=== PATIENT | male | born 1965 | race Caucasian/White ===

== ENCOUNTER 2019-01-08 11:21 | Emergency (ER) | payer SELFPAY ==
--- NOTE | 2019-01-08 12:58 | ER Document Report ---
HPI - HPI Patient complains to provider of: left great toe pain Time Seen by Provider: 01/08/19 12:49 Onset: Other Onset/Duration: Persistent Quality of pain: Achy Severity: Moderate Pain Level: 3 Context: [facility] with complaints of left foot pain, specifically left great toe pain for the past 2 weeks. He reports redness for the last few days. Denies other symptoms such as fever vomiting diarrhea. Denies trauma to the toe. Reports he has never had this before but he thinks it might be gout. Associated Symptoms: None Exacerbated by: Walking Relieved by: Denies Similar symptoms previously: No Recently seen / treated by doctor: No Past Medical History - General Information source: Patient - Social History Smoking Status: Current Every Day Smoker Cigarette use (# per day): Yes Frequency of alcohol use: Occasional Drug Abuse: None Family History: None Patient has suicidal ideation: No Patient has homicidal ideation: No - Medical History Medical History: Negative Surgical Hx: Negative Vertical Provider Document - CONSTITUTIONAL Agree With Documented VS: Yes Exam Limitations: No Limitations General Appearance: WD/WN, No Apparent Distress - INFECTION CONTROL TRAVEL OUTSIDE OF THE [place] IN LAST 30 DAYS: No - HEENT HEENT: Atraumatic, Pharyngeal Erythema - NECK Neck: Supple - RESPIRATORY Respiratory: No Respiratory Distress - CARDIOVASCULAR Cardiovascular: Regular Rate - MUSCULOSKELETAL/EXTREMETIES Musculoskeletal/Extremeties: MAEW, FROM, Tender - Great toe tender erythema and ttp noted to dorsal interphalangeal joint no warmth, no nail damage, no paronychia - NEURO Level of Consciousness: Awake, Alert, Appropriate Motor/Sensory: No Motor Deficit - DERM Integumentary: Warm, Dry Course - Re-evaluation Re-evalutation: 01/08/19 14:07 Foot x-ray negative uric acid 3.6..based on appearance patient has gout will treat with NSAIDs and steroids. Patient was instructed on the importance of follow-up with primary care provider for a full exam. He verbalized understanding to all instructions. Male sex (2 points) ?Previous patient-reported arthritis flare (2 points) ?Onset within one day (0.5 points) ?Joint redness (1 point) ?First metatarsal phalangeal joint involvement (2.5 points) ?Hypertension or at least one cardiovascular disease (1.5 points) ?Serum urate level greater than 5.88 mg/dL (3.5 points) Based upon the total score, patients can be identified as having low (?4 points), intermediate (>4 to <8 points), or high (?8 points) probability of gout. In addition, the authors of the rule have developed a calculator for clinical use that provides a more precise absolute calculated risk of gout for the individual patient [84] and is based upon statistically refined characterization of the variables Dictation of this chart was performed using voice recognition software; therefore, there may be some unintended grammatical errors. - Vital Signs Vital signs: Temp Pulse Resp BP Pulse Ox 97.9 F 70 16 142/73 H 100 01/08/19 11:43 01/08/19 11:43 01/08/19 11:43 01/08/19 11:43 01/08/19 11:43 - Diagnostic Test Radiology reviewed: Image reviewed, Reports reviewed - EXAM DESCRIPTION: FOOT LEFT COMPLETE COMPLETED DATE/TIME: 01/08/2019 1:15 pm REASON FOR STUDY: pain, swelling COMPARISON: None. NUMBER OF VIEWS: Three views. TECHNIQUE: AP, lateral and oblique without weight bearing radiographic images acquired of the left foot. LIMITATIONS: None. FINDINGS: MINERALIZATION: Normal. BONES: No acute fracture or dislocation. No worrisome bone lesions. No significant ost eophytes. JOINTS: No erosions. No federico-articular osteopenia. No chondrocalcinosis. SOFT TISSUES: No swelling. No calcifications. OTHER: No other significant finding. IMPRESSION: NEGATIVE STUDY OF THE LEFT FOOT. NO EXPLANATION FOR PAIN. TECHNICAL DOCUMENTATION: JOB ID: [id number] [employer]- All Rights Reserved Reading location - IP/workstation name: [email or web address] BY [facility] Discharge - Discharge Clinical Impression: Pain of left great toe Gout Qualifiers: Gout site: toe Gout etiology: unspecified cause Chronicity: acute Laterality: left Qualified Code(s): M10.9 - Gout, unspecified Condition: Stable Disposition: HOME, SELF-CARE Instructions: Anti-Inflammatory Medication ([facility]), Family Physicians / Practices, Gout ([facility]), Gout Diet ([facility]), Steroid Medication Additional Instructions: *You have been evaluated for right great toe pain, suspect gout *Rest *Follow up with a primary care provider within one week *Take medication as prescribed *Return to ED for worsening condition, changes, needs Monitor your blood pressure. Your blood pressure was elevated today. This may be because you were anxious, in pain or because you need medication. It is important to follow up with your primary care provider for full evaluation. Prescriptions: Naproxen 500 mg PO BID #30 tablet Prednisone [Deltasone 10 mg Tablet] 10 mg PO ASDIR PRN #21 tablet PRN Reason: Forms: Elevated Blood Pressure
--- NOTE | 2019-01-08 13:56 | RADIOLOGY REPORT (SQ) ---
EXAM DESCRIPTION: FOOT LEFT COMPLETE COMPLETED DATE/TIME: 01/08/2019 1:15 pm REASON FOR STUDY: pain, swelling COMPARISON: None. NUMBER OF VIEWS: Three views. TECHNIQUE: AP, lateral and oblique without weight bearing radiographic images acquired of the left f oot. LIMITATIONS: None. FINDINGS: MINERALIZATION: Normal. BONES: No acute fracture or dislocation. No worrisome bone lesions. No significant osteophytes. JOINTS: No erosions. No federico-articular osteopenia. No chondrocalcinosis. SOFT TISSUES: No swelling. No calcifications. OTHER: No other significant finding. IMPRESSION: NEGATIVE STUDY OF THE LEFT FOOT. NO EXPLANATION FOR PAIN. TECHNICAL DOCUMENTATION: JOB ID: [id number] [employer]- All Rights Reserved Reading location - IP/workstation name: [email or web address]
[2019-01-08] MEDS ORDERED: PREDNISONE 20 MG TABLET PO ONE (14:07)
[2019-01-08 14:19] VITALS: BP 111/72
== END 2019-01-08 14:36 | disposition home or self-care (01) ==
LOC: ER 11:21
DX: M10.9 Gout, unspecified (principal); M79.675 Pain in left toe(s); F17.210 Nicotine dependence, cigarettes, uncomplicated
CPT/HCPCS: 99283; 36415; 84550; 73630; J7512

== ENCOUNTER 2019-01-17 21:24 | Emergency (ER) | payer SELFPAY ==
[2019-01-17] MEDS ORDERED: LIDOCAINE 1% INJ-PF (10 MG/ML) 30 ML SDV INJ ONE (22:57)
[2019-01-17] MEDS ORDERED: IBUPROFEN 600 MG TABLET PO ONE (22:58)
[2019-01-17] MEDS ORDERED: CEPHALEXIN 500 MG CAPSULE PO ONE (22:58)
[2019-01-17] MEDS ORDERED: SULFAMETHOXAZOLE/TRIMETHOPRIM 800-160 MG TABLET PO ONE (22:58)
--- NOTE | 2019-01-18 | ER Document Report ---
HPI - HPI Patient complains to provider of: toe pain Time Seen by Provider: 01/17/19 22:52 Pain Level: 5 Context: Patient is a 53-year-old male presents to the emergency department for left great toe pain. Patient states he was seen at this facility 2 weeks ago diagnosed with gout. States he was placed on prednisone and naproxen. States he is taking medications as prescribed and they have not helped which is why he re-presents to the emergency room tonight. Patient is denying any discharge from the left great toe, trauma or injury to the left great toe. Patient denies any history of gout. Past medical history: None Medications: None Allergies: Penicillin, hydrocodone - CONSTITUTIONAL Constitutional: REPORTS: Fever Past Medical History - General Information source: Patient - Social History Smoking Status: Current Every Day Smoker Frequency of alcohol use: Heavy Drug Abuse: None Family History: None Patient has suicidal ideation: No Patient has homicidal ideation: No Renal/ Medical History: Denies: Hx Peritoneal Dialysis Vertical Provider Document - CONSTITUTIONAL Agree With Documented VS: Yes Notes: GENERAL: Alert, interacts well. No acute distress. HEAD: Normocephalic, atraumatic. EYES: Pupils equal, round, and reactive to light. Extraocular movements intact. ENT: Oral mucosa moist, tongue midline. NECK: Full range of motion. Supple. Trachea midline. LUNGS: Clear to auscultation bilaterally, no wheezes, rales, or rhonchi. No respiratory distress. HEART: Regular rate and rhythm. No murmur ABDOMEN: Soft, non-tender. Non-distended. Bowel sounds present in all 4 quadrants. EXTREMITIES: Moves all 4 extremities spontaneously. No edema, normal radial and dorsalis pedis pulses bilaterally. No cyanosis. BACK: no cervical, thoracic, lumbar midline tenderness. No saddle anesthesia, normal distal neurovascular exam. NEUROLOGICAL: Alert and oriented x3. Normal speech. cranial nerves II through XII grossly intact PSYCH: Normal affect, normal mood. SKIN: Warm, dry, normal turgor. Erythema and swelling noted around nailbed of left great toe. Area of fluctuance also noted medial toenail. - INFECTION CONTROL TRAVEL OUTSIDE OF THE [place] IN LAST 30 DAYS: No Course - Re-evaluation Re-evalutation: 01/17/19 23:57 Paronychia was drained, see procedure note for details. Patient tolerated well. Will place on antibiotics for surrounding skin cellulitis. Procedures - Incision and Drainage Paronychia Type: Simple Anesthetic type: 1% Lidocaine mL's of anesthetic: 5 Blade size: 11 I&D procedure: Betadine prep applied, Shurclens applied, Sterile dressing applied Incision Method: Incision made by scalpel Amount/type of drainage: Copious purulent Discharge - Discharge Clinical Impression: Paronychia, toe Qualifiers: Laterality: left Qualified Code(s): L03.032 - Cellulitis of left toe Condition: Stable Disposition: HOME, SELF-CARE Instructions: [place] ([facility]) Additional Instructions: As we discussed you have been seen and treated in the emergency department for an infection of your toenail. Due to the surrounding redness and swelling I am going to treat you with antibiotics. Please take them as prescribed. Please also continue to soak your left great toe in Epsom salt and warm water at least 3 times a day. He wants to continue to have drainage. Please take [id number] Tylenol Motrin for your pain. Please follow-up with your primary care provider in the next 24-48 hours and return to the emergency room for any other concerning symptoms. Prescriptions: Cephalexin Monohydrate [Keflex 500 mg Capsule] 500 mg PO BID 7 Days #14 capsule Sulfamethoxazole/Trimethoprim [Bactrim Ds Tablet] 1 each PO BID 7 Days #14 tablet Forms: Return to Work
[2019-01-18 00:51] VITALS: BP 116/70
== END 2019-01-18 00:51 | disposition home or self-care (01) ==
LOC: ER 21:24
DX: L03.032 Cellulitis of left toe (principal); M10.9 Gout, unspecified; R50.9 Fever, unspecified; F17.200 Nicotine dependence, unspecified, uncomplicated; Z88.0 Allergy status to penicillin; Z88.5 Allergy status to narcotic agent
CPT/HCPCS: 99283; 10060; J3490